=== PATIENT | female | born 1985 | race Caucasian/White ===

== ENCOUNTER 2017-01-13 20:53 | Emergency (ER) | payer OTHER ==
[~2017-01-13] VITALS: Ht 165.1 cm; Wt 90.7 kg
[~2017-01-13 20:53] MED LIST: ADDERALL 10 MG10 MG PO; ATARAX25 MG PO; BUSPAR15 MG PO; DARVOCET N 1001 TAB PO; DEXTROAMPH SACC10 M1 PO; PERCOCET 325 MG1 TA2 PO; PREDNICOT20 MG PO; PREDNISONE10 MG PO; ROBAXIN750 MG PO; TOBRADEX 0.1%-0.5 ML OPH; TRAMADOL HCL50 MG PO; VISTARIL25 M1 PO
[2017-01-13 21:02] VITALS: BP 150/90
== END 2017-01-13 22:32 | disposition home or self-care (01) ==
LOC: ED 20:53
DX: S93.401A Sprain of unspecified ligament of right ankle, initial encounter (principal); F17.200 Nicotine dependence, unspecified, uncomplicated; X58.XXXA Exposure to other specified factors, initial encounter; Y93.89 Activity, other specified; Y92.9 Unspecified place or not applicable; Y99.9 Unspecified external cause status

== ENCOUNTER 2017-07-14 19:45 | Emergency (ER) | payer OTHER ==
[~2017-07-14] VITALS: Ht 165.1 cm; Wt 104.3 kg
[2017-07-14 19:52] VITALS: BP 148/95
[2017-07-14] MEDS ORDERED: ALPRAZOLAM0.5 M3 PO (19:53)
== END 2017-07-14 21:44 | disposition home or self-care (01) ==
LOC: ED 19:45
DX: S61.511A Laceration without foreign body of right wrist, initial encounter (principal); F17.200 Nicotine dependence, unspecified, uncomplicated; W26.8XXA Contact with other sharp object(s), not elsewhere classified, initial encounter; Y93.89 Activity, other specified; Y92.9 Unspecified place or not applicable; Y99.9 Unspecified external cause status

== ENCOUNTER 2017-09-19 18:56 | Emergency (ER) | payer OTHER ==
[~2017-09-19] VITALS: Ht 165.1 cm; Wt 59.0 kg
[~2017-09-19 18:56] MED LIST changes: +ALPRAZOLAM0.5 M3 PO
[2017-09-19 19:09] VITALS: BP 124/72
[2017-09-19 19:40] LABS: HEMATOCRIT 37.4 % (37.0-47.0); HEMOGLOBIN 12.6 g/dl (12.0-16.0); MEAN CELL VOLUME 86.4 fl (81.0-99.0); MEAN CORPUSCULAR HGB 29.1 pg (27.0-31.0); MEAN CORPUSCULAR HGB CONC 33.7 g/dl (33.0-37.0); MEAN PLATELET VOLUME 8.7 fl (9.6-12.3); PLATELET COUNT AUTOMATED 482 10*3/uL (130-400); RED BLOOD COUNT 4.33 10*6/uL (4.10-5.10); RED CELL DISTRI WIDTH 14.1 % (0-14.5); WHITE BLOOD COUNT 16.5 10*3/uL (4.8-10.8)
[2017-09-19 19:56] LABS: ALBUMIN 3.3 gm/dl (3.1-4.5); ALKALINE PHOSPHATASE 57 U/L (45-117); BUN 14 mg/dl (7-24); CHLORIDE 106 mmol/L (98-107); SGOT/AST 13 IU/L (3-35); SGPT/ALT 23 U/L (12-78); SODIUM 138 mmol/L (136-145); TOTAL PROTEIN 7.2 gm/dL (6.4-8.2)
[2017-09-19 19:59] LABS: ATYPICAL LYMPHS 3 % (0-0); PLATELET SUFFICIENCY NORMAL (NORMAL); TOTAL CELLS COUNTED 100 #CELLS
== END 2017-09-19 20:32 | disposition home or self-care (01) ==
LOC: ED 18:56
PROVIDERS: Student in an Organized Health Care Education/Training Program
DX: O26.891 Other specified pregnancy related conditions, first trimester (principal); R05 Cough; O99.331 Smoking (tobacco) complicating pregnancy, first trimester; F17.200 Nicotine dependence, unspecified, uncomplicated; Z79.899 Other long term (current) drug therapy; Z3A.01 Less than 8 weeks gestation of pregnancy

== ENCOUNTER 2018-03-30 16:21 | Emergency (ER) | payer OTHER ==
[~2018-03-30] VITALS: Ht 165.1 cm; Wt 117.9 kg
[2018-03-30 16:22] VITALS: BP 145/83
[2018-03-30 17:15] LABS: BILIRUBIN 2+ (NEGATIVE); BLOOD NEGATIVE (NEGATIVE); CLARITY SL CLOUDY (CLEAR); COLOR YELLOW (YELLOW); GLUCOSE NEGATIVE (NEGATIVE); KETONE 1+ (NEGATIVE); LEUKO ESTERASE TRACE (NEGATIVE); NITRITE POSITIVE (NEGATIVE); PH 5.5 (5.0-9.0); SPECIFIC GRAVITY >= 1.030 (1.005-1.030)
[2018-03-30 17:16] LABS: BASO % 0.2 % (0.0-1.0); EOS # 0.3 10*3/uL (0.0-0.4); EOS % 2.2 % (1.0-4.0); HEMATOCRIT 34.7 % (37.0-47.0); HEMOGLOBIN 11.3 g/dl (12.0-16.0); LYMPH % 26.8 % (27.0-41.0); MEAN CELL VOLUME 87.8 fl (81.0-99.0); MEAN CORPUSCULAR HGB 28.6 pg (27.0-31.0); MEAN CORPUSCULAR HGB CONC 32.6 g/dl (33.0-37.0); MEAN PLATELET VOLUME 10.2 fl (9.6-12.3); MONO # 0.8 10*3/uL (0.1-1.0); MONO % 5.4 % (3.0-9.0); NEUT # 9.4 10*3/uL (2.3-7.9); NUCLEATED RED BLOOD CELL 0.3 % (0.0-0.0); PLATELET COUNT AUTOMATED 407 10*3/uL (130-400); RED BLOOD COUNT 3.95 10*6/uL (4.10-5.10); RED CELL DISTRI WIDTH 15.7 % (0-14.5); WHITE BLOOD COUNT 14.7 10*3/uL (4.8-10.8)
[2018-03-30 17:27] LABS: EPITHELIAL CELLS TNTC; MUCOUS TRACE; RBC 0-2 rbc/hpf (0-2)
[2018-03-30 17:31] LABS: ALBUMIN 2.1 gm/dl (3.1-4.5); ALKALINE PHOSPHATASE 104 U/L (45-117); BUN 10 mg/dl (7-24); CHLORIDE 109 mmol/L (98-107); CREATININE 0.66 mg/dL (0.55-1.02); POTASSIUM 4.3 mmol/L (3.5-5.1); SGOT/AST 80 IU/L (3-35); SGPT/ALT 103 U/L (12-78); SODIUM 141 mmol/L (136-145); TOTAL PROTEIN 6.2 gm/dL (6.4-8.2)
[2018-03-30] MEDS ORDERED: CEPHALEXIN500 M1 PO (18:36)
== END 2018-03-30 19:02 | disposition home or self-care (01) ==
LOC: ED 16:21
PROVIDERS: Nurse Practitioner
DX: O23.43 Unspecified infection of urinary tract in pregnancy, third trimester (principal); O26.893 Other specified pregnancy related conditions, third trimester; E86.0 Dehydration; Z79.899 Other long term (current) drug therapy; Z3A.33 33 weeks gestation of pregnancy

== ENCOUNTER → 2018-04-28 | Outpatient (CLI) | payer OTHER ==
[~2018-04-28] MED LIST changes: +CEPHALEXIN500 M1 PO
[2018-04-28 11:15] LABS: HEMOGLOBIN 7.6 g/dl (12.0-16.0)
== END | disposition home or self-care (01) ==
LOC: LAB 10:53
PROVIDERS: Pediatrics
DX: D64.9 Anemia, unspecified (principal)

== ENCOUNTER → 2021-06-24 | Outpatient (CLI) | payer OTHER ==
[~2021-06-24] MED LIST changes: +HYDROCODONE-AC1 EAC1 PO
== END | disposition home or self-care (01) ==
LOC: COVID19 16:01
PROVIDERS: ATTEND Internal Medicine
DX: U07.1 COVID-19 (principal)

== ENCOUNTER 2021-06-27 13:30 | Emergency (ER) | payer OTHER ==
[~2021-06-27] VITALS: Ht 167.6 cm; Wt 99.8 kg
[~2021-06-27 13:30] MED LIST changes: -HYDROCODONE-AC1 EAC1 PO
[2021-06-27 13:41] VITALS: BP 129/72
== END 2021-06-27 14:25 | disposition left against medical advice (07) ==
LOC: ED 13:30
DX: M79.10 Myalgia, unspecified site (principal); Z53.21 Procedure and treatment not carried out due to patient leaving prior to being seen by health care provider

== ENCOUNTER 2021-06-30 13:18 | Emergency (ER) | payer OTHER ==
[~2021-06-30] VITALS: Ht 165.1 cm; Wt 108.9 kg
[2021-06-30 16:45] VITALS: BP 128/72
== END 2021-06-30 19:49 | disposition home or self-care (01) ==
LOC: ED 13:18
DX: S43.014A Anterior dislocation of right humerus, initial encounter (principal); Z79.2 Long term (current) use of antibiotics; Z79.899 Other long term (current) drug therapy; W19.XXXA Unspecified fall, initial encounter; Y93.89 Activity, other specified; Y92.89 Other specified places as the place of occurrence of the external cause; Y99.8 Other external cause status

== ENCOUNTER 2021-07-03 07:36 | Emergency (ER) | payer OTHER ==
[~2021-07-03] VITALS: Ht 165.1 cm; Wt 108.9 kg
[2021-07-03] MEDS ORDERED: HYDROCODONE-AC1 EAC1 PO (10:43)
[2021-07-03 10:45] VITALS: BP 129/71
== END 2021-07-03 10:50 | disposition home or self-care (01) ==
LOC: ED 07:36
DX: S43.004A Unspecified dislocation of right shoulder joint, initial encounter (principal); Z79.899 Other long term (current) drug therapy; X58.XXXA Exposure to other specified factors, initial encounter; Y93.89 Activity, other specified; Y92.89 Other specified places as the place of occurrence of the external cause; Y99.8 Other external cause status

== ENCOUNTER 2021-07-11 15:52 | Emergency (ER) | payer OTHER ==
[~2021-07-11 15:52] MED LIST changes: +HYDROCODONE-AC1 EAC1 PO
[2021-07-11] MEDS ORDERED: TYLENOL325 M1 PO (19:56)
[2021-07-11] MEDS ORDERED: NAPROXEN250 MG PO (19:56)
== END 2021-07-11 20:43 | disposition home or self-care (01) ==
LOC: ED 15:52
DX: S42.91XA Fracture of right shoulder girdle, part unspecified, initial encounter for closed fracture (principal); Z79.899 Other long term (current) drug therapy; F17.200 Nicotine dependence, unspecified, uncomplicated; X58.XXXA Exposure to other specified factors, initial encounter; Y93.89 Activity, other specified; Y92.89 Other specified places as the place of occurrence of the external cause; Y99.8 Other external cause status

== ENCOUNTER 2021-08-19 08:53 | Emergency (ER) | payer OTHER ==
[~2021-08-19] VITALS: Ht 165.1 cm; Wt 108.9 kg
[~2021-08-19 08:53] MED LIST changes: +NAPROXEN250 MG PO; +TYLENOL325 M1 PO
[2021-08-19 12:37] VITALS: BP 140/90; BP 141/95; BP 150/101; BP 150/79; BP 160/88; BP 163/90
[2021-08-19] MEDS ORDERED: Motrin,Rufen800 MG PO (13:23)
== END 2021-08-19 13:14 | disposition home or self-care (01) ==
LOC: ED 08:53
DX: S43.084A Other dislocation of right shoulder joint, initial encounter (principal); X58.XXXA Exposure to other specified factors, initial encounter; Y93.89 Activity, other specified; Y92.89 Other specified places as the place of occurrence of the external cause; Y99.8 Other external cause status

== ENCOUNTER → 2021-10-28 | Outpatient (CLI) | payer OTHER ==
[~2021-10-28] MED LIST changes: +Motrin,Rufen800 MG PO
== END ==
LOC: MRI 10-23 14:00
PROVIDERS: ATTEND Orthopaedic Surgery
DX: S46.811A Strain of other muscles, fascia and tendons at shoulder and upper arm level, right arm, initial encounter (principal); S43.431A Superior glenoid labrum lesion of right shoulder, initial encounter; M25.411 Effusion, right shoulder; X58.XXXA Exposure to other specified factors, initial encounter; Y93.89 Activity, other specified; Y92.89 Other specified places as the place of occurrence of the external cause; Y99.8 Other external cause status

== ENCOUNTER 2022-07-31 19:36 | Emergency (ER) | payer OTHER ==
[2022-07-31 20:17] VITALS: BP 159/76
== END 2022-07-31 21:55 | disposition home or self-care (01) ==
LOC: ED 19:36
DX: S89.92XA Unspecified injury of left lower leg, initial encounter (principal); Z79.899 Other long term (current) drug therapy; F17.200 Nicotine dependence, unspecified, uncomplicated; W18.39XA Other fall on same level, initial encounter; Y93.89 Activity, other specified; Y92.89 Other specified places as the place of occurrence of the external cause; Y99.8 Other external cause status

== ENCOUNTER 2024-01-27 19:09 | Emergency (ER) | payer OTHER ==
[~2024-01-27] VITALS: Ht 167.6 cm; Wt 104.3 kg
[2024-01-27 19:28] VITALS: BP 153/82
[2024-01-27] MEDS ORDERED: Acetaminophen/Hydrocodone 5 MG/325 MG TABLET PO ONE (19:40)
[2024-01-27 20:05] LABS: BASO % 0.1 % (0.0-1.0); EOS # 0.3 10*3/uL (0.0-0.4); EOS % 2.8 % (1.0-4.0); HEMATOCRIT 36.9 % (37.0-47.0); LYMPH # 3.6 10*3/uL (1.3-4.4); MEAN CELL VOLUME 89.3 fl (81.0-99.0); MEAN CORPUSCULAR HGB 27.4 pg (27.0-31.0); MEAN CORPUSCULAR HGB CONC 30.6 g/dl (33.0-37.0); MEAN PLATELET VOLUME 8.8 fl (9.6-12.3); MONO # 0.7 10*3/uL (0.1-1.0); MONO % 6.9 % (3.0-9.0); NEUT # 5.2 10*3/uL (2.3-7.9); NEUT % 53.1 % (47.0-73.0); PLATELET COUNT AUTOMATED 449 10*3/uL (130-400); RED BLOOD COUNT 4.13 10*6/uL (4.10-5.10); RED CELL DISTRI WIDTH 12.4 % (0-14.5); WHITE BLOOD COUNT 9.7 10*3/uL (4.8-10.8)
[2024-01-27 20:26] LABS: BUN 14 mg/dl (9-23); CHLORIDE 107 mmol/L (98-107); URIC ACID 5.9 mg/dL (3.1-7.8)
[2024-01-27] MEDS ORDERED: Motrin,Rufen800 MG PO (21:22)
== END 2024-01-27 21:55 | disposition home or self-care (01) ==
LOC: ED 19:09
PROVIDERS: Nurse Practitioner Family
DX: M25.461 Effusion, right knee (principal); J45.909 Unspecified asthma, uncomplicated; F41.9 Anxiety disorder, unspecified; F90.9 Attention-deficit hyperactivity disorder, unspecified type

== ENCOUNTER 2024-04-29 18:51 | Emergency (ER) | payer OTHER ==
[~2024-04-29] VITALS: Ht 165.1 cm; Wt 99.8 kg
[2024-04-29 19:11] VITALS: BP 166/102
[2024-04-29] MEDS ORDERED: Acetaminophen/Hydrocodone HP 10/325 PO ONE (19:30)
[2024-04-29] MEDS ORDERED: NAPROSYN500 MG PO (22:14)
[2024-04-29] MEDS ORDERED: METHOCARBAMOL500 M1 PO (22:14)
[2024-04-29] MEDS ORDERED: HYDROCODONE-AC1 EACH PO (22:14)
== END 2024-04-29 20:34 | disposition home or self-care (01) ==
LOC: ED 18:51
DX: T14.8XXA Other injury of unspecified body region, initial encounter (principal); S49.92XA Unspecified injury of left shoulder and upper arm, initial encounter; J45.909 Unspecified asthma, uncomplicated; F41.9 Anxiety disorder, unspecified; F90.9 Attention-deficit hyperactivity disorder, unspecified type; V86.55XA Driver of 3- or 4- wheeled all-terrain vehicle (ATV) injured in nontraffic accident, initial encounter; Y93.89 Activity, other specified; Y92.410 Unspecified street and highway as the place of occurrence of the external cause; Y99.8 Other external cause status

== ENCOUNTER 2024-11-15 17:14 | Emergency (ER) | payer OTHER ==
[~2024-11-15] VITALS: Ht 165.1 cm; Wt 87.5 kg
[~2024-11-15 17:14] MED LIST changes: +HYDROCODONE-AC1 EACH PO; +METHOCARBAMOL500 M1 PO; +NAPROSYN500 MG PO
[2024-11-15 17:32] VITALS: BP 148/84
[2024-11-15] MEDS ORDERED: Ketorolac Tromethamine 30 MG/ML VIAL IM ONE (17:45)
[2024-11-15] MEDS ORDERED: Ondansetron Hydrochloride 4 MG/2 ML VIAL IM ONE (17:45)
[2024-11-15] MEDS ORDERED: BROMFED DM COU118 M2 PO (19:07)
[2024-11-15] MEDS ORDERED: GUAIFENESIN/DEXTROMETHORPHAN 10 ML UDC PO ONE (19:10)
== END 2024-11-15 19:25 | disposition home or self-care (01) ==
LOC: ED 17:14
DX: J06.9 Acute upper respiratory infection, unspecified (principal); Z20.822 Contact with and (suspected) exposure to COVID-19; J45.909 Unspecified asthma, uncomplicated; F41.9 Anxiety disorder, unspecified; F90.9 Attention-deficit hyperactivity disorder, unspecified type; R11.0 Nausea; R19.7 Diarrhea, unspecified